=== PATIENT | male | born 2000 | race Caucasian/White ===

== ENCOUNTER → 2022-05-06 | Outpatient (CLI) | payer OTHER ==
--- NOTE | 2022-05-07 06:53 | MR ---
EXAMINATION TYPE: MR hip RT wo con DATE OF EXAM: 05/06/2022 COMPARISON: None. HISTORY: Right hip pain x 3 years. Standard multiplanar, multisequence MRI departmental protocol Multiplanar, multisequence images of the pelvis focusing on the right hip were acquired without contr ast. FINDINGS: There are small symmetric hip joint effusions seen. Bone marrow signal intensity is mainta ined. No suspicious increased T2 signal or osseous edema. No serpiginous diminished T1 signal to sugg est avascular necrosis. Femoral head shapes are maintained bilaterally. Labrum appears grossly intact given the limitation of nonarthrogram study. No significant spurring or subchondral cystic change ri ght hip is present. No groin hernia or adenopathy is seen. Muscle bulk is maintained bilaterally. No suspicious edema level of greater or lesser trochanters bilaterally. Prostate gland appears within normal limits. Urinary bladder appears unremarkable. No concerning pelv ic fluid collection is seen. Pubic symphysis is intact. IMPRESSION: Acute or chronic Source of patient's right-sided hip pain not identified.
== END | disposition home or self-care (01) ==
LOC: RADMRIMAIN 10:39
PROVIDERS: ATTEND Physician Assistant Medical
DX: M25.551 Pain in right hip (principal)